=== PATIENT | female | born 1985 | race Caucasian/White ===

== ENCOUNTER 2018-09-09 22:50 | Observation (INO) | payer OTHER ==
[~2018-09-09] VITALS: Ht 167.6 cm; Wt 85.3 kg
[~2018-09-09 22:50] MED LIST: PREN1TAB52 PO
[2018-09-10] MEDS ORDERED: RINGERS SOLUTION,LACTATED 1,000 ML IV ONE (00:15)
[2018-09-10 02:06] VITALS: BP 103/51
[2018-09-10] MEDS ORDERED: LEVO25TA9 PO ×2 (02:32→02:34)
[2018-09-10] MEDS ORDERED: IRON-24 PO (02:34)
== END 2018-09-10 02:25 | disposition home or self-care (01) ==
LOC: 4S 22:50
PROVIDERS: ADMIT Obstetrics & Gynecology; ATTEND Obstetrics & Gynecology
DX: O62.9 Abnormality of forces of labor, unspecified (principal); Z3A.28 28 weeks gestation of pregnancy
CPT/HCPCS: G0378 ×2; J7120

== ENCOUNTER 2018-09-13 10:58 | Observation (INO) | payer OTHER ==
[~2018-09-13] VITALS: Ht 165.1 cm; Wt 83.5 kg
[~2018-09-13 10:58] MED LIST changes: +IRON-24 PO; +LEVO25TA9 PO
[2018-09-13] MEDS ORDERED: RINGERS SOLUTION,LACTATED 1,000 ML IV ONE (15:04)
== END 2018-09-13 18:20 | disposition home or self-care (01) ==
LOC: 4S 10:58
PROVIDERS: ADMIT Obstetrics & Gynecology; ATTEND Obstetrics & Gynecology
DX: O62.9 Abnormality of forces of labor, unspecified (principal); Z3A.28 28 weeks gestation of pregnancy
CPT/HCPCS: G0378; J7120

== ENCOUNTER 2018-09-17 21:26 | Observation (INO) | payer OTHER ==
[~2018-09-17] VITALS: Ht 167.6 cm; Wt 86.2 kg
[2018-09-25 11:23] VITALS: BP 128/65
[2018-09-25] MEDS ORDERED: NIFEdipine 10 MG CAPSULE PO ONE (12:00)
[2018-09-25] MEDS ORDERED: FERR325T22 PO (12:06)
== END 2018-09-25 12:50 | disposition home or self-care (01) ==
LOC: 4S 09-25 11:08
PROVIDERS: ADMIT Obstetrics & Gynecology; ATTEND Obstetrics & Gynecology
DX: O62.9 Abnormality of forces of labor, unspecified (principal); Z3A.30 30 weeks gestation of pregnancy
CPT/HCPCS: 76805; 81002; G0378

== ENCOUNTER 2018-10-09 13:45 | Observation (INO) | payer OTHER ==
[~2018-10-09] VITALS: Ht 165.1 cm; Wt 86.2 kg
[~2018-10-09 13:45] MED LIST changes: +FERR325T22 PO; -IRON-24 PO
[2018-10-10 02:15] VITALS: BP 102/59
[2018-10-10] MEDS ORDERED: ACET-66 PO (02:41)
[2018-10-10] MEDS ORDERED: NIFEdipine 10 MG CAPSULE PO ONE ×2 (03:00→05:15)
[2018-10-10] MEDS ORDERED: RINGERS SOLUTION,LACTATED 1,000 ML IV SCH (05:15)
== END 2018-10-10 07:07 | disposition home or self-care (01) ==
LOC: 4S 10-10 01:56
PROVIDERS: ADMIT Obstetrics & Gynecology; ATTEND Obstetrics & Gynecology
DX: O62.9 Abnormality of forces of labor, unspecified (principal); Z3A.32 32 weeks gestation of pregnancy
CPT/HCPCS: 81002; G0378; J7120

== ENCOUNTER 2018-10-18 20:08 | Observation (INO) | payer OTHER ==
[~2018-10-18] VITALS: Ht 167.6 cm; Wt 86.2 kg
[~2018-10-18 20:08] MED LIST changes: +ACET-66 PO
[2018-10-18 20:39] VITALS: BP 142/57
[2018-10-18 20:49] LABS: GLUCOMETER DEV NAME(LOC) 4S.; GLUCOSE,POINT OF CARE 76 MG/DL (70-110)
[2018-10-18] MEDS: NIFEdipine 10 MG CAPSULE PO ONE ×2 (21:22→22:51)
[2018-10-18] MEDS: BETAMETHASONE SOLUSPAN 6 MG/ML 5 ML VIAL IM SCH (21:22)
[2018-10-18] MEDS: RINGERS SOLUTION,LACTATED 1,000 ML IV SCH ×2 (21:48→21:49)
[2018-10-18] MEDS ORDERED: RINGERS SOLUTION,LACTATED 1,000 ML IV PRN (22:35)
[2018-10-18] MEDS ORDERED: RINGERS SOLUTION,LACTATED 1,000 ML IV SCH (22:35)
[2018-10-18] MEDS ORDERED: METOCLOPRAMIDE HCL 5 MG/ML 2 ML VIAL IVP PRN (22:45)
[2018-10-18] MEDS ORDERED: CITRIC ACID/SODIUM CITRATE 30 ML SOLUTION UDCUP PO PRN (22:45)
[2018-10-18] MEDS ORDERED: MAGNESIUM SULFATE 4 GM/WATER 100 ML IV ONE (22:45)
[2018-10-18] MEDS ORDERED: OXYGEN THERAPY IH SCH (22:45)
[2018-10-18] MEDS ORDERED: CALCIUM GLUCONATE 100 MG/ML 10 ML IVP PRN (22:45)
[2018-10-18] MEDS ORDERED: MAGNESIUM SULFATE 500 ML IV SCH (22:55)
[2018-10-18 23:33] LABS: BASOPHILS % (AUTO) 0.4 % (0.0-2.0); EOSINOPHILS % (AUTO) 0.4 % (1.0-6.0); HEMATOCRIT 31.8 % (36-46); LYMPHOCYTES # (AUTO) 1.7 K/uL (1.0-4.8); LYMPHOCYTES % (AUTO) 17.7 % (22.0-44.0); MEAN CORPUSCULAR HEMOGLOBIN 31.7 pg (26.0-34.0); MEAN CORPUSCULAR HGB CONC 34.6 G/dL (31.0-37.0); MEAN CORPUSCULAR VOLUME 92 fL (80-100); MONOCYTES # (AUTO) 0.4 K/uL (0.1-1.0); MONOCYTES % (AUTO) 4.3 % (2.0-9.0); NEUTROPHILS # (AUTO) 7.4 K/uL (1.8-7.7); NEUTROPHILS % (AUTO) 77.2 % (40.0-70.0); PLATELET COUNT (AUTO)-OB 309 K/uL (150-450); RED BLOOD CELL COUNT(AUTO) 3.46 MIL/uL (4.00-5.20); RED CELL DISTRIBUTION WIDTH 13.3 % (11.5-14.5)
[2018-10-19] MEDS ORDERED: RINGERS SOLUTION,LACTATED 1,000 ML IV SCH (00:30)
[2018-10-19] MEDS: BETAMETHASONE SOLUSPAN 6 MG/ML 5 ML VIAL IM SCH (09:29)
== END 2018-10-19 12:25 | disposition home or self-care (01) ==
LOC: OBSVTOIN 20:08 → 4S 20:08 → INTOOBSV 20:08
PROVIDERS: ADMIT Obstetrics & Gynecology; ATTEND Obstetrics & Gynecology
DX: O62.9 Abnormality of forces of labor, unspecified (principal); O99.283 Endocrine, nutritional and metabolic diseases complicating pregnancy, third trimester; E03.9 Hypothyroidism, unspecified; O99.013 Anemia complicating pregnancy, third trimester; Z3A.34 34 weeks gestation of pregnancy
CPT/HCPCS: 36415 ×2; 81002; 82962; 83735 ×2; 85025; 86850; 86900; 86901; 96365; 96366 ×2; 96372 ×2; G0378 ×2; J0702 ×2; J3475 ×2; J7120 ×2

== ENCOUNTER 2018-10-29 01:59 | Inpatient (IN) | payer OTHER ==
[~2018-10-29] VITALS: Ht 165.1 cm; Wt 88.5 kg
[2018-10-29] MEDS: RINGERS SOLUTION,LACTATED 1,000 ML IV SCH ×3 (04:00→09:29)
[2018-10-29] MEDS ORDERED: RINGERS SOLUTION,LACTATED 1,000 ML IV PRN (05:09)
[2018-10-29] MEDS ORDERED: OXYTOCIN 30 UNITS/LACT RINGERS 500 ML IV ONE (05:09)
[2018-10-29] MEDS ORDERED: RINGERS SOLUTION,LACTATED 1,000 ML IV SCH (05:09)
[2018-10-29] MEDS ORDERED: CITRIC ACID/SODIUM CITRATE 30 ML SOLUTION UDCUP PO PRN (05:15)
[2018-10-29] MEDS ORDERED: METOCLOPRAMIDE HCL 5 MG/ML 2 ML VIAL IVP PRN (05:15)
[2018-10-29 05:19] LABS: BASOPHILS % (AUTO) 0.3 % (0.0-2.0); EOSINOPHILS % (AUTO) 0.7 % (1.0-6.0); HEMATOCRIT 32.3 % (36-46); HEMOGLOBIN 10.9 g/dL (12.0-16.0); LYMPHOCYTES # (AUTO) 2.2 K/uL (1.0-4.8); LYMPHOCYTES % (AUTO) 24.5 % (22.0-44.0); MEAN CORPUSCULAR HEMOGLOBIN 31.3 pg (26.0-34.0); MEAN CORPUSCULAR HGB CONC 33.9 G/dL (31.0-37.0); MEAN CORPUSCULAR VOLUME 93 fL (80-100); MONOCYTES # (AUTO) 0.7 K/uL (0.1-1.0); MONOCYTES % (AUTO) 7.4 % (2.0-9.0); NEUTROPHILS # (AUTO) 6.1 K/uL (1.8-7.7); NEUTROPHILS % (AUTO) 67.1 % (40.0-70.0); PLATELET COUNT (AUTO)-OB 318 K/uL (150-450); RED BLOOD CELL COUNT(AUTO) 3.49 MIL/uL (4.00-5.20); RED CELL DISTRIBUTION WIDTH 13.2 % (11.5-14.5)
[2018-10-29 05:28] LABS: INR 0.9 (0.9-1.1); PROTHROMBIN TIME 9.4 SEC (9.4-11.6)
[2018-10-29] MEDS: FentaNYL CITRATE-PF 100 MCG/2 ML VIAL IVP PRN ×6 (05:44→08:22)
[2018-10-29] MEDS ORDERED: AMPICILLIN SODIUM 2 GM/NS 100 ML IV ONE (06:00)
[2018-10-29] MEDS ORDERED: OXYGEN THERAPY IH SCH (08:00)
[2018-10-29] MEDS ORDERED: ROPIVACAINE HCL/PF 0.2% 100 ML ED ONE (09:40)
[2018-10-29] MEDS ORDERED: AMPICILLIN SODIUM 1 GM/NS 50 ML IV SCH (10:00)
[2018-10-29] MEDS: OXYTOCIN 30 UNITS/LACT RINGERS 500 ML IV PRN ×2 (10:40→10:45)
[2018-10-29] MEDS ORDERED: BENZOCAINE 20%/MENTHOL 56 GM SPRAY CANISTER TP PRN (13:30)
[2018-10-29] MEDS ORDERED: LANOLIN 7 GM OINTMENT TP PRN (13:30)
[2018-10-29] MEDS ORDERED: GLYCERIN/WITCH HAZEL LEAF 40 PADS JAR TP PRN (13:30)
[2018-10-29] MEDS ORDERED: ACETAMINOPHEN/CODEINE 300-30 MG TABLET PO PRN ×2 (13:30)
[2018-10-29] MEDS: IBUPROFEN 800 MG TABLET PO SCH ×2 (14:05→20:45)
[2018-10-29] MEDS ORDERED: MAGNESIUM HYDROXIDE SUSPENSION 30 ML UDCUP PO SCH (21:00)
[2018-10-30] MEDS: IBUPROFEN 800 MG TABLET PO SCH (02:48)
[2018-10-30] MEDS ORDERED: LEVOTHYROXINE SODIUM 25 MCG TABLET PO SCH (06:30)
== END 2018-10-30 14:30 | disposition home or self-care (01) | DRG 560 ==
LOC: OBSVTOIN 01:59 → 4S 01:59
PROVIDERS: ADMIT Obstetrics & Gynecology; ATTEND Obstetrics & Gynecology
PROC: 10E0XZZ Delivery of Products of Conception, External Approach (ICD-10-PCS; principal; 2018-10-29)
PROC: 3E0R3BZ Introduction of Anesthetic Agent into Spinal Canal, Percutaneous Approach (ICD-10-PCS; 2018-10-29)
PROC: 00HU33Z Insertion of Infusion Device into Spinal Canal, Percutaneous Approach (ICD-10-PCS; 2018-10-29)
DX: O60.14X0 Preterm labor third trimester with preterm delivery third trimester, not applicable or unspecified (principal); O69.81X0 Labor and delivery complicated by cord around neck, without compression, not applicable or unspecified; Z37.0 Single live birth; Z3A.35 35 weeks gestation of pregnancy
CPT/HCPCS: 76805; 86850; 86900; 86901; J0290; J2590; J2795; J3010; J7120